=== PATIENT | female | born 1970 | race Two or more races ===

== ENCOUNTER 2023-07-02 08:08 | Emergency (ER) | payer OTHER ==
[~2023-07-02] VITALS: Ht 157.5 cm; Wt 81.1 kg
[2023-07-02 09:19] VITALS: BP 145/68; PULSE 84; RESP 16; TEMP 97.4; O2SAT 98
== END 2023-07-02 10:05 | disposition home or self-care (01) ==
LOC: ER 08:08
DX: S93.692A Other sprain of left foot, initial encounter (principal); W22.8XXA Striking against or struck by other objects, initial encounter; Y93.89 Activity, other specified; Y92.89 Other specified places as the place of occurrence of the external cause; Y99.8 Other external cause status
CPT/HCPCS: 73630